=== PATIENT | male | born 1955 | race Caucasian/White ===

== ENCOUNTER 2017-02-28 07:24 | Emergency (ER) | payer OTHER ==
[~2017-02-28] VITALS: Ht 195.6 cm; Wt 106.5 kg
[2017-02-28] MEDS ORDERED: ALBUTEROL SULFATE 2.5 MG/3 ML NPPB ONE (08:00)
[2017-02-28] MEDS ORDERED: ALBUTEROL SULFATE 2.5 MG/3 ML ONE (08:04)
[2017-02-28 08:17] VITALS: BP 147/94
== END 2017-02-28 09:00 | disposition home or self-care (01) ==
LOC: ED 08:45
DX: J98.01 Acute bronchospasm (principal)
CPT/HCPCS: 71020; 93005; 94640; 99284; J7613

== ENCOUNTER 2017-03-01 14:02 | Emergency (ER) | payer OTHER ==
[~2017-03-01] VITALS: Ht 195.6 cm; Wt 107.2 kg
[2017-03-01] MEDS ORDERED: KETOROLAC 30 MG/1 ML IM ONE (15:00)
[2017-03-01] MEDS ORDERED: SODIUM CHLORIDE 0.9% 1,000ML IVBOLUS ONE (15:00)
[2017-03-01] MEDS ORDERED: DIAZEPAM 5 MG TABLET PO ONE (15:00)
[2017-03-01] MEDS ORDERED: SODIUM CHLORIDE FLUSH 10ML SYR IVF ONE (15:00)
[2017-03-01] MEDS ORDERED: ONDANSETRON 2MG/ML, 2ML IVPush ONE (15:00)
[2017-03-01] MEDS ORDERED: MORPHINE SULFATE 4 MG/ML, 1ML IVPush PRN (15:00)
[2017-03-01] MEDS ORDERED: OXYcodone/APAP 5/325MG TABLET PO ONE (15:00)
[2017-03-01 15:15] LABS: BLOOD UREA NITROGEN 16 mg/dL (7-18)
[2017-03-01] MEDS ORDERED: MORPHINE SULFATE 4 MG/ML, 1ML ONE (15:16)
[2017-03-01] MEDS ORDERED: ONDANSETRON 2MG/ML, 2ML ONE (15:16)
[2017-03-01 15:19] LABS: ASPARTATE AMINO TRANSFERASE 20 U/L (15-37)
[2017-03-01 17:17] VITALS: BP 143/84
[2017-03-01] MEDS ORDERED: OMNIPAQUE 350 MG/ML, 100ML BOTTLE ONE (17:53)
== END 2017-03-01 17:18 | disposition home or self-care (01) ==
LOC: ED 17:02
DX: S30.1XXA Contusion of abdominal wall, initial encounter (principal); J20.8 Acute bronchitis due to other specified organisms; N40.0 Benign prostatic hyperplasia without lower urinary tract symptoms; W19.XXXA Unspecified fall, initial encounter; Y93.89 Activity, other specified; Y92.89 Other specified places as the place of occurrence of the external cause; Y99.8 Other external cause status
CPT/HCPCS: 36415; 71111; 74177; 80053; 83690; 85025; 96361; 96374; 96375; 99285; J2405; J7030; Q9967

== ENCOUNTER 2018-09-22 22:19 | Observation (INO) | payer OTHER ==
[~2018-09-22] VITALS: Ht 195.6 cm; Wt 110.2 kg
[2018-09-22] MEDS ORDERED: ASPIRIN 81 MG TABLET CHEW ONE (22:30)
[2018-09-22] MEDS ORDERED: ASPIRIN 81 MG TABLET CHEW PO ONE (22:30)
[2018-09-22] MEDS ORDERED: SODIUM CHLORIDE FLUSH 10ML SYR IVF ONE (22:30)
[2018-09-22] MEDS ORDERED: NITROGLYCERIN SINGLE TAB 0.4 MG SL PRN (22:30)
[2018-09-22] MEDS ORDERED: NITROGLYCERIN SINGLE TAB 0.4 MG SL ONE (22:30)
[2018-09-22 22:34] LABS: BASOPHILS # (AUTO) 0.02 x10^3/uL (0-0.1); BASOPHILS % (AUTO) 0 % (0-1); EOSINOPHILS # (AUTO) 0.16 x10^3/uL (0-0.4); EOSINOPHILS % (AUTO) 2 % (1-7); LYMPHOCYTES # (AUTO) 2.66 x10^3/uL (1-3.4); LYMPHOCYTES % (AUTO) 35 % (22-44); MD NO; MEAN CORPUSCULAR HEMOGLOBIN 31.9 pg (27.5-34.5); MEAN CORPUSCULAR HGB CONC 34.5 g/dL (33.2-36.2); MEAN CORPUSCULAR VOLUME 92.3 fL (81-97); MEAN PLATELET VOLUME 7.4 fL (7.4-10.4); MONOCYTES % (AUTO) 7 % (2-9); NEUTROPHILS # (AUTO) 4.33 x10^3/uL (1.8-6.8); NEUTROPHILS % (AUTO) 56 % (42-75); PLATELET COUNT 194 x10^3/uL (130-400); RED BLOOD COUNT 4.92 x10^6/uL (4.38-5.82); RED CELL DISTRIBUTION WIDTH 14.2 % (9.4-14.8)
[2018-09-22 22:46] LABS: INTERNATIONAL NORMALIZED RATIO 0.98 (0.93-1.1); PROTHROMBIN TIME 10.4 Seconds (9.6-11.5)
[2018-09-22 22:49] LABS: TROPONIN I < 0.015 ng/mL (0.000-0.045)
--- NOTE | 2018-09-22 22:52 | NUR ---
LATE ENTRY 70690- PT TO CT
--- NOTE | 2018-09-22 22:53 | NUR ---
LATE ENTRY 2220-BIB [facility] FROM HOME, PT WOKE FROM SLEEP WITH ACUTE ONSET LEFT SIDED CP THAT RADIATES TO HIS BACK, PER [facility] B/P 220/110, [place] [address]/90, PT REFUSED PAIN MEDICATION, DENIES HTN OR CARDIAC H/X. MONITORS APPLIED, SIDERAILS UP X2, CALL LIGHT WITHIN REACH, ERP AT BEDSIDE FOR EVAL
[2018-09-22] MEDS ORDERED: OMNIPAQUE 350 MG/ML, 100ML BOTTLE ONE (22:58)
--- NOTE | 2018-09-22 23:11 | NUR ---
ASSUMED CARE FOR THIS PT. BP RIGHT ARM 178/100 AND LEFT ARM 167/97
[2018-09-22] MEDS ORDERED: ONDANSETRON 2MG/ML, 2ML ONE (23:19)
[2018-09-22] MEDS ORDERED: MORPHINE SULFATE 4 MG/ML, 1ML ONE (23:19)
--- NOTE | 2018-09-22 23:23 | NUR ---
PT MEDICATED ORDERED.
[2018-09-22] MEDS ORDERED: MORPHINE SULFATE 4 MG/ML, 1ML IVPush PRN (23:30)
[2018-09-22] MEDS ORDERED: ONDANSETRON 2MG/ML, 2ML IVPush ONE (23:30)
[2018-09-23] VITALS (13 sets, daily range): BP systolic 143–179; BP diastolic 78–100
[2018-09-23] MEDS ORDERED: SODIUM CHLORIDE FLUSH 10ML SYR IVF PRN
--- NOTE | 2018-09-23 | NUR ---
PT WITH PAIN IMPROVED BUT OCCASIONAL SHARP LEFT SIDED PAIN GOING THROUGH TO HIS BACK CONTINUE.
--- NOTE | 2018-09-23 00:19 | NUR ---
REPORT CALLED TO FLOOR
[2018-09-23] MEDS ORDERED: NITROGLYCERIN 0.4 MG BOTTLE (25 TABS) SL ONE (00:42)
[2018-09-23] MEDS ORDERED: KETOROLAC 30 MG/1 ML ONE (00:42)
[2018-09-23] MEDS: NITROGLYCERIN 0.4 MG BOTTLE (25 TABS) SL PRN ×3 (00:47→05:42)
[2018-09-23] MEDS ORDERED: ENALAPRILAT 1.25 MG/ML, 2ML IVPush PRN (01:00)
[2018-09-23] MEDS ORDERED: morphine SULFATE 10 MG/ML, 1ML IVPush PRN (01:00)
[2018-09-23] MEDS ORDERED: ONDANSETRON ODT 4 MG PO PRN (01:00)
[2018-09-23] MEDS ORDERED: KETOROLAC 30 MG/1 ML IVPush ONE (01:00)
[2018-09-23] MEDS ORDERED: ACETAMINOPHEN 325 MG TABLET PO PRN (01:00)
[2018-09-23] MEDS ORDERED: DOCUSATE 100 MG CAPSULE PO PRN (01:00)
[2018-09-23] MEDS ORDERED: hydrALAzine 20 MG/ML, 1ML IVPush PRN (01:00)
[2018-09-23] MEDS ORDERED: TEMAZEPAM 15 MG CAPSULE PO PRN (01:00)
[2018-09-23] MEDS ORDERED: ENOXAPARIN 40 MG/0.4 ML SQ SCH (01:00)
[2018-09-23 05:27] LABS: TROPONIN I < 0.015 ng/mL (0.000-0.045)
[2018-09-23] MEDS: KETOROLAC 30 MG/1 ML IV PRN ×2 (06:29→13:40)
[2018-09-23] MEDS: AMLODIPINE 5 MG TABLET PO SCH ×2 (08:32→09:00)
[2018-09-23 10:54] LABS: TROPONIN I < 0.015 ng/mL (0.000-0.045)
[2018-09-23] MEDS ORDERED: POTASSIUM CHLORIDE 20 MEQ TAB.ER.PRT PO ONE (14:00)
[2018-09-23 16:58] LABS: MICROSCOPIC NOT IND
[2018-09-23] MEDS ORDERED: HYDR25TA6 PO (17:00)
[2018-09-23] MEDS ORDERED: AMLO-150 PO (17:00)
[2018-09-23] MEDS ORDERED: FINA5TAB4 PO (17:01)
[2018-09-23] MEDS ORDERED: TAMS-11 PO (17:01)
[2018-09-23 17:02] LABS: CULTURE INDICATED? NO
[2018-09-24] MEDS ORDERED: HYDROCHLOROTHIAZIDE 25 MG TABLET PO SCH (09:00)
== END 2018-09-23 18:23 | disposition home or self-care (01) ==
LOC: ED 23:50 → EDIP 23:55 → INTOOBSV 23:55 → ED 09-23 → 5SO 09-23 00:28
PROVIDERS: ADMIT Hospitalist; ATTEND Hospitalist
DX: I24.9 Acute ischemic heart disease, unspecified (principal); I16.0 Hypertensive urgency; E87.6 Hypokalemia; N26.1 Atrophy of kidney (terminal); Z80.52 Family history of malignant neoplasm of bladder; Z82.49 Family history of ischemic heart disease and other diseases of the circulatory system; Z82.5 Family history of asthma and other chronic lower respiratory diseases
CPT/HCPCS: 36415; 71045; 71275; 76770; 78452; 80047; 81003; 83735; 83880; 84484; 85025; 85610; 85730; 93005; 93017; 93306; 96372; 96374; 96375; 96376; 99284; A9502; C9898; G0378; J0360; J1650; J1885; J2405; Q9967

== ENCOUNTER 2019-04-11 15:23 | Emergency (ER) | payer OTHER ==
[~2019-04-11] VITALS: Ht 195.6 cm; Wt 105.0 kg
[~2019-04-11 15:23] MED LIST: AMLO-150 PO; FINA5TAB4 PO; HYDR25TA6 PO; TAMS-11 PO
[2019-04-11] MEDS ORDERED: ASPIRIN 81 MG TABLET CHEW PO ONE (16:00)
--- NOTE | 2019-04-11 16:04 | NUR ---
FIELD RADIO OPERATOR: PT TO ROOM FROM [facility]
[2019-04-11 16:12] LABS: BASOPHILS # (AUTO) 0.01 x10^3/uL (0-0.1); BASOPHILS % (AUTO) 0 % (0-1); EOSINOPHILS # (AUTO) 0.15 x10^3/uL (0-0.4); EOSINOPHILS % (AUTO) 3 % (1-7); LYMPHOCYTES # (AUTO) 1.68 x10^3/uL (1-3.4); LYMPHOCYTES % (AUTO) 31 % (22-44); MD NO; MEAN CORPUSCULAR HEMOGLOBIN 31.3 pg (27.5-34.5); MEAN CORPUSCULAR HGB CONC 33.6 g/dL (33.2-36.2); MEAN CORPUSCULAR VOLUME 93.2 fL (81-97); MEAN PLATELET VOLUME 7.8 fL (7.4-10.4); MONOCYTES # (AUTO) 0.31 x10^3/uL (0.2-0.8); MONOCYTES % (AUTO) 6 % (2-9); NEUTROPHILS # (AUTO) 3.27 x10^3/uL (1.8-6.8); NEUTROPHILS % (AUTO) 60 % (42-75); PLATELET COUNT 181 x10^3/uL (130-400); RED BLOOD COUNT 4.84 x10^6/uL (4.38-5.82); RED CELL DISTRIBUTION WIDTH 14.1 % (9.4-14.8)
[2019-04-11 16:21] LABS: ALBUMIN 4.2 g/dL (3.4-5.0); ANION GAP 3 mmol/L (5-15); CALCIUM 8.7 mg/dL (8.5-10.1); CHLORIDE 111 mmol/L (98-107); CREATININE 1.09 mg/dL (0.7-1.3)
[2019-04-11 16:25] LABS: TROPONIN I < 0.015 ng/mL (0.000-0.045)
[2019-04-11 16:35] VITALS: BP 144/79
--- NOTE | 2019-04-11 16:45 | NUR ---
DENIES CP AT THIS TIME. AT BEDSIDE. CONTINUE TO MONITOR
== END 2019-04-11 17:59 | disposition home or self-care (01) ==
LOC: ED 17:06
DX: R07.89 Other chest pain (principal); I10 Essential (primary) hypertension; M10.9 Gout, unspecified
CPT/HCPCS: 36415; 71046; 80048; 82040; 84443; 84484; 85025; 93005; 99284